=== PATIENT | female | born 1950 | race African-American/Black ===

== ENCOUNTER 2017-03-02 09:17 | Emergency (ER) | payer OTHER ==
[~2017-03-02] VITALS: Ht 160 cm; Wt 72.0 kg
[~2017-03-02 09:17] MED LIST: ADVAIR 250/501 DISK IH; ALENDRONATE SOD70 MG PO; ERGOCALCIF50000 UNIT PO; LEVAQUIN750 MG PO; LORTAB 10-3251 EACH PO; LORTAB 5-325 M1 EACH PO; LYRICA75 MG PO; MIRALAX255 GM PO; MOTRIN800 MG PO; NEURONTIN300 MG; PERCOCET 5/31 TABLET PO; PREDNISONE20 MG PO; PROVENTIL,2.5 MG/3 M IH; REXULTI2 MG PO; SINGULAIR10 MG PO; SOMA250 MG PO; VENTOLIN HFA18 GM IH; ZITHROMAX Z-PA250 MG PO
[2017-03-02 09:29] VITALS: BP 111/85
== END 2017-03-02 09:54 | disposition left against medical advice (07) ==
LOC: EME 09:17
DX: G89.29 Other chronic pain (principal); M54.5 Low back pain; M79.7 Fibromyalgia; J44.9 Chronic obstructive pulmonary disease, unspecified

== ENCOUNTER 2017-05-29 23:25 | Emergency (ER) | payer OTHER ==
[~2017-05-29] VITALS: Ht 160 cm; Wt 73.5 kg
[2017-05-30] MEDS ORDERED: NARCAN4 MG NS (07:32)
[2017-05-30 08:27] VITALS: BP 127/79
== END 2017-05-30 08:29 | disposition left against medical advice (07) ==
LOC: EME → EDBD 23:25 → EME 23:25
DX: T40.601A Poisoning by unspecified narcotics, accidental (unintentional), initial encounter (principal); R09.02 Hypoxemia; J44.9 Chronic obstructive pulmonary disease, unspecified; Z99.81 Dependence on supplemental oxygen; M79.7 Fibromyalgia
CPT/HCPCS: 71010; 80048; 85025; 93005; 99281; 99284; G0480; J2310; J7030

== ENCOUNTER 2018-04-11 17:09 | Emergency (ER) | payer OTHER ==
[~2018-04-11] VITALS: Ht 160 cm; Wt 68.5 kg
[~2018-04-11 17:09] MED LIST changes: -ADVAIR 250/501 DISK IH; +ADVAIR 500/501 DISK IH; +DESYREL100 MG PO; +INCRUSE ELLI62.5 MCG IH; +NARCAN4 MG NS; +RISPERDAL2 MG PO; +SUBOXONE 8 MG-1 EAC2 SL
[2018-04-11] MEDS ORDERED: NAPROSYN500 MG PO (21:48)
[2018-04-11 22:03] VITALS: BP 151/98
== END 2018-04-11 22:04 | disposition home or self-care (01) ==
LOC: EME 17:09
DX: Z04.1 Encounter for examination and observation following transport accident (principal); K59.00 Constipation, unspecified; F32.9 Major depressive disorder, single episode, unspecified; Z79.891 Long term (current) use of opiate analgesic; Z79.51 Long term (current) use of inhaled steroids; Z87.39 Personal history of other diseases of the musculoskeletal system and connective tissue; Z86.73 Personal history of transient ischemic attack (TIA), and cerebral infarction without residual deficits; Z90.49 Acquired absence of other specified parts of digestive tract; Z91.018 Allergy to other foods; Z88.6 Allergy status to analgesic agent; Z91.038 Other insect allergy status
CPT/HCPCS: 71045; 72131; 74176; 99281; 99283